=== PATIENT | male | born 1960 | race Caucasian/White ===

== ENCOUNTER → 2019-04-03 09:53 | Outpatient (CLI) | payer OTHER, SELFPAY ==
--- NOTE | 2019-04-03 12:02 | DIET.PN ---
Diabetes Intake: Initial Assessment Assess: Mr. Echols is a 58 YOM referred for type 2 diabetes. He reports his main concern is his triglycerides. He is confused as his A1c has gone down, but his triglycerides continue to climb. He reports several health complications including 2 stents (5 yrs ago), degenerative arthritis of the spine, inflammation of lower radicular nerves, nerve paralysis, and sleep apnea. He reports following dietary restrictions following the guidelines from the book ?Always Hungry?? by author and Raul Bates MD, PhD. This particular diet follows a mod/high fat, low glycemic plan similar to gonzales or ketogenic diets. He was following this with reported improvement in his A1c in hopes to have a back surgery. When informed this surgery was no longer a benefit with this provider he discontinued the plan and began following old habits. He states he does not monitor his BG or weight but is certain they have gone up. He is eager to learn more about how to control his BG and trig through dietary changes, but also admits to eating starchy foods and sugary beverages regularly. He is lives with his girlfriend who tends to primarily cook fried, sugar added foods. Labs: Per pt report: A1c: 6.8 Meds: metformin 850 mg BID; Lipitor 10 mg qd Diet: per 24 hr recall: B: eggs/coley, honey nut cheerios w/ fruit/milk L: meat cheese sandwich D: chicken teriyaki w/ peas, potatoes Wt: 244 Ht: 70 in BMI: 35 DX: Altered nutrition related laboratory values related to impaired glucose metabolism, lack of previous exposure to nutrition information as evidenced by pt report, diagnosis of diabetes, previous diet high in refined carbohydrates. Intervention: 1. Completed intake assessment. Discussed barriers to care. 2. Discussed pathophysiology of diabetes. Reviewed A1c and its correlation to blood glucose numbers. Discussed recommended BG ranges. 3. Discussed importance of self-monitoring, how often, and when to check. 4. Reviewed hyper/hypoglycemia and treatment. 5. Reviewed safe disposal of equipment (strip/lancets/insulin needles). 6. Created SMART goals for pt self-care and success. 7. Discussed program curriculum outline and class needs based on individual goals. SMART Goals: 1. Pt would like to lose 10 lb (~5%) in the next 3 months through reducing starchy foods and portion sizes. 2. Pt will monitor FBG and 2 hr PP alternating meal times 2 days/week. Monitor/Evaluate: Anticipate good compliance. Pt will attend full DSME program. Basic Nutrition class scheduled for Apr 10.
== END ==
PROVIDERS: Family Provider Internal Medicine; PCP Internal Medicine; Visit Provider Nurse Practitioner Family
DX: E11.9 Type 2 diabetes mellitus without complications (principal); Z79.84 Long term (current) use of oral hypoglycemic drugs; E66.9 Obesity, unspecified; Z68.35 Body mass index [BMI] 35.0-35.9, adult; Z71.3 Dietary counseling and surveillance
CPT/HCPCS: G0108

== ENCOUNTER → 2019-04-10 09:53 | Outpatient (CLI) | payer OTHER, SELFPAY ==
--- NOTE | 2019-04-10 12:12 | DIET.PN ---
Diabetes: Healthy Eating 1 Intervention: ? Discussed pathophysiology of diabetes and impact of nutrition/diet on blood sugar control.? Discussed fed versus non-fed state.?? ? Reviewed importance of Balance, Variety, and Moderation. ? Discussed the effect of carbohydrates/protein/fat on blood sugar control.? ? Stressed importance of consistent carbohydrate intake at each meal and provided instructions for recommended servings/portions of carbohydrates/protein per meal. Provided educational material. ? Reviewed carbohydrate counting and measuring carbohydrate content via serving sizes and reading nutrition labels.? Provided handouts.?? ? Discussed the difference between simple versus complex carbohydrates and the effect of fiber on blood sugar control.? Discussed various methods to increase fiber content in diet. ? Discussed the plate method for creating more carbohydrate conscious balanced meals. ? Stressed importance of meal timing and not going >4-5 hours between meals. Encouraged adding protein to evening snack to support glucose control overnight. ? Discussed importance of making dietary habits part of lifestyle change.
== END ==
PROVIDERS: Family Provider Internal Medicine; PCP Internal Medicine; Visit Provider Nurse Practitioner Family
DX: E11.69 Type 2 diabetes mellitus with other specified complication (principal); E78.1 Pure hyperglyceridemia; Z71.3 Dietary counseling and surveillance
CPT/HCPCS: G0109

== ENCOUNTER → 2019-04-14 14:03 | Outpatient (CLI) | payer OTHER, SELFPAY ==
--- NOTE | 2019-04-14 17:07 | DIET.PN ---
Diabetes: Healthy Eating 2 Intervention: Fats effects on glucose, weight, heart disease, cholesterol Sat Vs Unsat Protein- animal and plant based options Low, med, high fat meats Sugar substitutes Sodium Health claims Grocery shopping guidelines Eating away from home Alcohol Sick day guidelines
== END ==
PROVIDERS: PCP Internal Medicine; Visit Provider Nurse Practitioner Family
DX: E11.9 Type 2 diabetes mellitus without complications (principal)
CPT/HCPCS: G0109

== ENCOUNTER → 2019-04-24 09:45 | Outpatient (CLI) | payer OTHER, SELFPAY ==
--- NOTE | 2019-04-24 12:11 | DIET.PN ---
Diabetes Physiology: Intervention 1. Diabetes physiology 2. Detecting and treatment of acute and chronic complications 3. Diagnosis of and difference in types of diabetes 4. Self-monitoring and pattern management a. Demonstrate glucometer and control testing b. Explain BG results and action to take when out of range. 5. Foot , eye, dental care 6. Medications a. Oral medication classification b. Injectable c. Insulin i. Injection protocol i i. Other delivery methods:
== END ==
PROVIDERS: PCP Internal Medicine; Visit Provider Nurse Practitioner Family
DX: E11.69 Type 2 diabetes mellitus with other specified complication (principal); E78.1 Pure hyperglyceridemia; Z71.3 Dietary counseling and surveillance
CPT/HCPCS: G0109

== ENCOUNTER → 2019-04-29 09:45 | Outpatient (CLI) | payer OTHER, SELFPAY ==
[2019-04-29 11:28] VITALS: BMI 35.0
--- NOTE | 2019-04-29 12:36 | DIET.PN ---
DIABETES Nutrition Initial Assessment:? ASSESS:??? Mr. Mnedoza is a 58 yom? referred for type 2 diabetes seen as part of DSME program. He presents today to discuss the glycemic index, goals for glucose control and grocery shopping guidelines. ? LABS: Per pt report:? A1c: 6.8 ? MEDS:?? metf 850 mg BID, Lipitor 10 mg ? DIET: BLT w/ cheese and eggs, burrito bowls, canned tamales, elli maryuri brkfst bowl ? Weight: 244 lb Ht: 70 in? Exercise:? none due to back/leg pain NUTRITION DX 1. Altered Nutrition related labs related to impaired glucose metabolism, lack of previous exposure to accurate nutrition information as evidenced by pt report, dx of diabetes, previous diet high in refined carbohydrates.? INTERVENTION(s): 1. Reviewed pathophysiology of diabetes and impact of nutrition/diet on blood sugar control.? Discussed fed versus non-fed state.?? 2. Discussed the effect of carbohydrates/protein/fat on blood sugar control.? Stressed importance of consistent carbohydrate intake at each meal and provided instructions for recommended servings/portions of carbohydrates/protein per meal. Provided pt with educational material. 3. Reviewed carbohydrate counting and measuring carbohydrate content via serving sizes and reading nutrition labels.? Provided handouts.?? 4. Discussed the difference between simple versus complex carbohydrates and the effect of fiber on blood sugar control.? Discussed various methods to increase fiber content in diet. 5. Stressed importance of meal timing and not going >4-5 hours between meals. Encouraged adding protein to evening snack to support glucose control overnight. Patient agreeable. 6. Discussed healthy weight loss goals of 1-2lbs per week through diet and exercise.? 7. Recommend monitoring fasting and alternating 2 hr PP mealtime glucose. MONITOR/EVALUATE: Anticipate good compliance.? Nutrition follow-up scheduled for 1 month. [facility] f[facility].
== END ==
PROVIDERS: PCP Internal Medicine; Referring Provider Nurse Practitioner Family; Visit Provider Nurse Practitioner Family
DX: E11.69 Type 2 diabetes mellitus with other specified complication (principal); E78.1 Pure hyperglyceridemia; Z71.3 Dietary counseling and surveillance
CPT/HCPCS: G0109

== ENCOUNTER → 2019-05-26 10:28 | Outpatient (CLI) | payer OTHER, SELFPAY ==
--- NOTE | 2019-05-27 12:26 | DIET.PN ---
INDIVIDUAL NUTRITION ASSESSMENT? ? ASSESS:? Mr Echols is a 58 yom?seen for diabetes nutrition F/U. He presents today to discuss glucose values and nutrition goals. He brings with him his blood glucose log a food diary. His has made several dietary changes since our last visit including more frequent meals, substituting enriched starches for whole grains and vegetable options. He has noticed a declining trend in fasting blood glucose, but often has postprandial spikes, generally related to meal consumed. He continues to use many canned goods and sauces that include large amounts of carbohydrate, but it working on eliminating added sugars. He has not been able to exercise due to knee and hip pain, but is hoping to have surgery to he can be active again. ? LABS: A1c: 6.8 FB-175 (trending down) 2 hr PP:??<180 ? Weight: 240 (down from 244) ? EXERCISE:??none ? NUTRITION Dx? 1. Altered nutrition related labs r/t type 2 DM, inconsistent carbohydrate intake as evidenced by pt report, dietary recall.?? ? INTERVENTION? 1. Reviewed blood sugar log and implications/reasons for elevated/decreased blood sugar.? Pt with good understanding.? 2. Reviewed carbohydrate counting and importance of consistent carbohydrate intake.?Reviewed Glycemic Index and reasons to choose foods high in fiber, without added sugar. 3. Reviewed meal intake and importance of balanced meals (crow to prevent overeating).??? 4. Provided information on fat/protein intake and ways to limit saturated fat. 5. Discussed limiting processed foods. Provided information and examples of acceptable packaged meals, and meals to avoid. ? MONITOR/EVALUATE: Pt receptive to information provided.? [facility]. Will schedule follow-up after new labs.
== END ==
PROVIDERS: PCP Internal Medicine; Referring Provider Nurse Practitioner Family; Visit Provider Nurse Practitioner Family
DX: E11.9 Type 2 diabetes mellitus without complications (principal); Z71.3 Dietary counseling and surveillance
CPT/HCPCS: G0109

== ENCOUNTER → 2019-06-15 11:17 | Outpatient (CLI) | payer OTHER, SELFPAY ==
--- NOTE | 2019-06-15 11:21 | DI.MRI.S_ITS ---
PROCEDURE: MR PELIS WO/W CON INDICATIONS: Malignant neoplasm of prostate TECHNIQUE: Coronal HASTE, axial T1 FSE with fat saturation, 3-plane nonbreath-hold T2 FSE. After the administration of contrast, dynamic axial, delayed axial and coronal VIBE or 2-D FLASH with fat saturation through the pelvis. Optional diffusion weighted imaging and ADC may be performed. COMPARISON: None. FINDINGS: Image quality: Diagnostic, with evaluation slightly limited by motion artifact. Prostate: Gland size is 4.7 x 3.6 x 4.0 cm; ellipsoid gland volume is 35 mL. There is mild heterogeneous enlargement of the transition zone compatible with BPH. Lesion size(s): Lesion 1: Approximately 1.1 x 0.7 cm in the axial plane on diffusion weighted images. Lesion location(s) (sector): Lesion 1: Right posterior peripheral zone laterally within the mid gland. Lesion description: Lesion 1: There is an oval lesion with indistinct margins in the right peripheral zone demonstrating T2 isointense to slightly hyperintense signal. No evidence of extracapsular extension. T2 weighted imaging (T2WI) morphology score: Lesion 1: 3 Diffusion weighted imaging (DWI) morphology score: Lesion 1: 4 Dynamic contrast enhancement (DCE): Lesion 1: Present. Lesion PI-RADS score: Lesion 1: PI-RADS 4 Genitourinary system: There is bladder wall thickening and trabeculation consistent with sequela of chronic bladder outlet obstruction. Distal ureters are non distended. Bowel and peritoneum: No pathologic free pelvic fluid. Inferior colon and small bowel loops are normal in caliber. Nodes and vessels: No pelvic or inguinal adenopathy by size criteria. Iliac vessels are normal in caliber. Soft tissues: No inguinal hernias. There is a hydrocele within the right hemiscrotum with a cystic lesion suggestive of a spermatocele. Bones: Marrow demonstrates normal overall signal, without definite suspicious lesions to suggest metastases. IMPRESSION: 1. PI-RADS 4 lesion demonstrated within the right peripheral zone as described. 2. No lymphadenopathy or other evidence of metastatic disease in the pelvis. 3. No extracapsular periprostatic extension. 4. Partially visualized right hydrocele with a thin wall cyst in the right hemiscrotum. Recommend further evaluation with a scrotal ultrasound if clinically indicated. Dictated by: Ramesh Valero M.D. on 06/15/2019 at 16:53 Approved by: Ramesh Valero M.D. on 06/15/2019 at 17:03
== END ==
PROVIDERS: PCP Internal Medicine; Referring Provider Specialist; Visit Provider Specialist
DX: C61 Malignant neoplasm of prostate (principal); N43.3 Hydrocele, unspecified
CPT/HCPCS: 72197; A9579